=== PATIENT | male | born 1990 | race Caucasian/White ===

== ENCOUNTER 2021-09-30 17:38 | Emergency (ER) | payer OTHER ==
[2021-09-30] MEDS ORDERED: CYCLOBENZAPRINE10 MG PO (20:20)
== END 2021-09-30 20:50 | disposition home or self-care (01) ==
LOC: FER 17:38
DX: S62.001A Unspecified fracture of navicular [scaphoid] bone of right wrist, initial encounter for closed fracture (principal); S80.211A Abrasion, right knee, initial encounter; J45.909 Unspecified asthma, uncomplicated; Z91.040 Latex allergy status; V49.9XXA Car occupant (driver) (passenger) injured in unspecified traffic accident, initial encounter
CPT/HCPCS: 70450; 71260; 72125; 73130; Q9967